=== PATIENT | male | born 1965 | race American Indian/Alaskan Native ===

== ENCOUNTER 2019-02-21 15:59 | Emergency (ER) | payer OTHER ==
[2019-02-21 16:06] VITALS: BP 137/79
--- NOTE | 2019-02-21 16:08 | Emergency Department Report ---
Upper Extremity - HPI Chief Complaint: Shoulder Injury Stated Complaint: LFT SIDE SHOULDER NERVE/PAIN Time Seen by Provider: 02/21/19 16:03 Upper Extremity: Left Shoulder Occurred When: 3 Days Severity: moderate Symptoms: No Deformity, No Limited Range of Movement, No Numbness, No Swelling, No Bruising/Ecchymosis, No Laceration or Abrasion Other History: 53 y/o male comes in for 3 day history of complains of left neck pain that intermittent no pain at this moment. Denies any trauma. Thinks he may have slept on it wrong. Took Aleve OTC. ED Review of Systems ROS: Stated complaint: LFT SIDE SHOULDER NERVE/PAIN Other details as noted in HPI Comment: All other systems reviewed and negative ED Past Medical Hx - Past Medical History Previous Medical History?: No - Surgical History Past Surgical History?: Yes Additional Surgical History: neck surgery disk. - Medications Home Medications: Home Medications Medication Instructions Recorded Confirmed Last Taken Type Dicyclomine [Bentyl] 20 mg PO QID #20 tablet 02/27/15 Unknown Rx L.acidoph,Paracasei, B.lactis 1 each PO DAILY #30 capsule 02/27/15 Unknown Rx [Probiotic] Ondansetron [Zofran TAB] 4 mg PO Q8HR PRN #20 tablet 02/27/15 Unknown Rx Ibuprofen [Motrin 800 MG tab] 800 mg PO Q8HR PRN #30 tablet 02/21/19 Unknown Rx Upper Extremity Exam - Exam General: Vital signs noted. No distress. Alert and acting appropriately. Head and Torso: Yes HEENT Abnormality, No Neck Tenderness Shoulder Exam: Yes Normal Range of Motion in Shoulder, No Shoulder Tenderness, No Clavicle Tenderness, No Shoulder Deformity, No AC Joint Tenderness Arm Exam: No Arm/Humerus Tenderness, No Arm Deformity Elbow: No Elbow Tenderness, No Normal Range of Motion in Elbow, No Elbow Deformity Forearm: No Forearm Tenderness, No Forearm Deformity, No Pain with Pronation, No Pain with Supination ED Medical Decision Making - Medical Decision Making 53 y/o male comes in for 3 day history of complains of left neck pain that intermittent no pain at this moment. Denies any trauma. Thinks he may have slep t on it wrong. Took Aleve OTC. Critical care attestation.: If time is entered above; I have spent that time in minutes in the direct care of this critically ill patient, excluding procedure time. ED Disposition Clinical Impression: Acute strain of neck muscle Qualifiers: Encounter type: initial encounter Qualified Code(s): S16.1XXA - Strain of muscle, fascia and tendon at neck level, initial encounter Disposition: TO HOME OR SELFCARE Is pt being admited?: No Does the pt Need Aspirin: No Condition: Stable Instructions: Muscle Strain (ED) Additional Instructions: Take medication as prescribed. Warm moist heat. Prescriptions: Ibuprofen [Motrin 800 MG tab] 800 mg PO Q8HR PRN #30 tablet PRN Reason: Pain , Severe (7-10) Referrals: Your, Primary Care [Other] - 3-5 Days Forms: Work/School Release Form(ED)
== END 2019-02-21 16:32 | disposition home or self-care (01) ==
LOC: ED 15:59
DX: S16.1XXA Strain of muscle, fascia and tendon at neck level, initial encounter (principal); Z79.899 Other long term (current) drug therapy; Z98.890 Other specified postprocedural states; X58.XXXA Exposure to other specified factors, initial encounter; Y93.89 Activity, other specified; Y92.89 Other specified places as the place of occurrence of the external cause; Y99.8 Other external cause status
CPT/HCPCS: 99282